=== PATIENT | male | born 1960 | race Caucasian/White ===

== ENCOUNTER 2017-10-14 10:08 | Emergency (ER) | payer BC ==
[~2017-10-14] VITALS: Ht 177.8 cm; Wt 106.8 kg
[2017-10-14 10:49] LABS: BASOPHIL (%) 0.2 % (0-1); EOSINOPHIL (%) 0.3 % (0-5); HEMATOCRIT 37.7 % (38.0-50.0); HEMOGLOBIN 13.3 G/DL (12.5-16.6); IMMATURE GRANULOCYTE (%) 0.3 % (0.0-0.7); LYMPHOCYTE (%) 10.2 % (15-42); LYMPHOCYTE COUNT 1.1 K/uL (1.0-2.8); MCH 31.4 PG (29.0-34.0); MCHC 35.3 G/DL (30.0-36.0); MCV 88.9 FL (86-99); MONOCYTE (%) 11.5 % (3-12); MONOCYTE COUNT 1.3 K/uL (0-0.8); NEUTROPHIL (%) 77.5 % (45-76); NEUTROPHIL COUNT 8.6 K/uL (1.8-6.4); PLATELET COUNT 249 K/uL (156-360); RBC DIS.WIDTH-CV 12.2 % (11.8-14.6); RBC DIS.WIDTH-SD 39.8 % (39-53); RED BLOOD COUNT 4.24 M/uL (4.00-5.50); WHITE BLOOD COUNT 11.1 K/uL (4.1-10.2)
[2017-10-14 10:59] LABS: CHLORIDE 100 mEq/L (99-109); POTASSIUM 3.6 mEq/L (3.7-5.4); SODIUM 136 mEq/L (136-147)
[2017-10-14 11:00] LABS: GLUCOSE 186 mg/dL (70-99)
[2017-10-14 11:04] LABS: CREATININE 1.1 mg/dL (0.6-1.3); GFR ESTIMATE (CALCULATED) > 59 mL/min/ (58.99-99999)
[2017-10-14 11:05] LABS: UREA NITROGEN (BUN) 18 mg/dL (9-23)
[2017-10-14] MEDS ORDERED: DOXYCYCLINE MO100 MG PO (12:00)
[2017-10-14] MEDS ORDERED: NORCO 5/3251 TABLET PO (12:20)
[2017-10-14 12:26] VITALS: BP 118/70
== END 2017-10-14 12:28 | disposition home or self-care (01) ==
LOC: EME 10:08
DX: M70.41 Prepatellar bursitis, right knee (principal); R50.9 Fever, unspecified; E11.9 Type 2 diabetes mellitus without complications
CPT/HCPCS: 71046; 73564; 80048; 81003; 83605; 85025; 99281; 99285

== ENCOUNTER 2017-10-16 10:17 | Inpatient (IN) | payer BC ==
[~2017-10-16] VITALS: Ht 177.8 cm; Wt 108.5 kg
[~2017-10-16 10:17] MED LIST: DOXYCYCLINE MO100 MG PO; NORCO 5/3251 TABLET PO
[2017-10-16 11:01] LABS: HEMATOCRIT 35.3 % (38.0-50.0); HEMOGLOBIN 12.7 G/DL (12.5-16.6); MCH 31.6 PG (29.0-34.0); MCV 87.8 FL (86-99); PLATELET COUNT 273 K/uL (156-360); RED BLOOD COUNT 4.02 M/uL (4.00-5.50); WHITE BLOOD COUNT 11.5 K/uL (4.1-10.2)
[2017-10-16 11:10] LABS: CHLORIDE 98 mEq/L (99-109); POTASSIUM 3.4 mEq/L (3.7-5.4); SODIUM 134 mEq/L (136-147)
[2017-10-16 11:12] LABS: GLUCOSE 168 mg/dL (70-99)
[2017-10-16 11:15] LABS: GFR ESTIMATE (CALCULATED) > 59 mL/min/ (58.99-99999)
[2017-10-16 11:16] LABS: UREA NITROGEN (BUN) 19 mg/dL (9-23)
[2017-10-16] MEDS ORDERED: AMARYL4 MG PO (13:18)
[2017-10-16] MEDS ORDERED: ACTOS30 MG PO (13:18)
[2017-10-16] MEDS ORDERED: GLUCOPHAGE1000 MG PO (13:18)
[2017-10-16] MEDS ORDERED: HYDROCHLOROTHIA25 MG PO (13:18)
[2017-10-16] MEDS ORDERED: DICLOFENAC SODI75 MG PO (13:19)
[2017-10-16] MEDS ORDERED: AVAPRO300 MG PO (13:19)
[2017-10-16] MEDS ORDERED: PAXIL30 MG PO (13:20)
[2017-10-16] MEDS ORDERED: LIPITOR40 MG PO (13:20)
[2017-10-16] MEDS ORDERED: PRAVACHOL40 MG PO (13:21)
[2017-10-16] MEDS ORDERED: PROTONIX40 MG PO (13:22)
[2017-10-16] MEDS ORDERED: MEN'S MULTI-VI1 EACH PO (13:22)
[2017-10-16] MEDS ORDERED: FIBER PO (13:23)
[2017-10-16 15:03] VITALS: BP 112/74
[2017-10-16 19:17] VITALS: BP 121/79
[2017-10-16 23:10] VITALS: BP 134/85
[2017-10-17 05:52] LABS: BASOPHIL (%) 0.2 % (0-1); EOSINOPHIL (%) 1.1 % (0-5); EOSINOPHIL COUNT 0.1 K/uL (0-0.3); HEMATOCRIT 36.2 % (38.0-50.0); HEMOGLOBIN 12.5 G/DL (12.5-16.6); IMMATURE GRANULOCYTE (%) 0.9 % (0.0-0.7); LYMPHOCYTE (%) 12.3 % (15-42); LYMPHOCYTE COUNT 1.3 K/uL (1.0-2.8); MCH 30.6 PG (29.0-34.0); MCHC 34.5 G/DL (30.0-36.0); MCV 88.7 FL (86-99); MONOCYTE (%) 7.3 % (3-12); MONOCYTE COUNT 0.8 K/uL (0-0.8); NEUTROPHIL (%) 78.2 % (45-76); NEUTROPHIL COUNT 8.2 K/uL (1.8-6.4); PLATELET COUNT 309 K/uL (156-360); RBC DIS.WIDTH-SD 39.5 % (39-53); RED BLOOD COUNT 4.08 M/uL (4.00-5.50); WHITE BLOOD COUNT 10.5 K/uL (4.1-10.2)
[2017-10-17 06:15] LABS: CHLORIDE 100 MEQ/L (99-109); CREATININE 0.9 MG/DL (0.6-1.3); GFR ESTIMATE (CALCULATED) > 59 mL/min/ (58.99-99999); GLUCOSE 155 mg/dL (70-99); POTASSIUM 3.7 MEQ/L (3.7-5.4); SODIUM 136 MEQ/L (136-147); UREA NITROGEN (BUN) 21 mg/dL (9-23)
[2017-10-17 07:25] VITALS: BP 130/82
[2017-10-17 10:48] LABS: HEMOGLOBIN A1c (GLYCOHEMOGLOB) 7.4 % (Below 5.7)
[2017-10-17 11:22] VITALS: BP 125/81
[2017-10-17 15:28] VITALS: BP 121/71
[2017-10-18 00:09] VITALS: BP 133/84
[2017-10-18 06:36] LABS: BASOPHIL (%) 0.3 % (0-1); EOSINOPHIL (%) 1.2 % (0-5); EOSINOPHIL COUNT 0.1 K/uL (0-0.3); HEMATOCRIT 36.1 % (38.0-50.0); HEMOGLOBIN 12.3 G/DL (12.5-16.6); IMMATURE GRANULOCYTE (%) 0.7 % (0.0-0.7); LYMPHOCYTE (%) 14.2 % (15-42); LYMPHOCYTE COUNT 1.3 K/uL (1.0-2.8); MCH 30.4 PG (29.0-34.0); MCHC 34.1 G/DL (30.0-36.0); MCV 89.1 FL (86-99); MONOCYTE (%) 7.8 % (3-12); MONOCYTE COUNT 0.7 K/uL (0-0.8); NEUTROPHIL (%) 75.8 % (45-76); PLATELET COUNT 349 K/uL (156-360); RBC DIS.WIDTH-CV 12.1 % (11.8-14.6); RBC DIS.WIDTH-SD 39.5 % (39-53); RED BLOOD COUNT 4.05 M/uL (4.00-5.50); WHITE BLOOD COUNT 9.2 K/uL (4.1-10.2)
[2017-10-18 07:03] LABS: ALBUMIN 3.9 G/DL (3.2-4.8); ALKALINE PHOSPHATASE 80 IU/L (3-129); ALT (GPT) 23 IU/L (3-49); AST (GOT) 20 IU/L (2-34); CHLORIDE 97 MEQ/L (99-109); CREATININE 0.8 MG/DL (0.6-1.3); GFR ESTIMATE (CALCULATED) > 59 mL/min/ (58.99-99999); POTASSIUM 3.9 MEQ/L (3.7-5.4); SODIUM 138 MEQ/L (136-147); TOTAL BILIRUBIN 0.6 MG/DL (0.0-1.0); TOTAL PROTEIN 6.8 G/DL (6.4-8.3); UREA NITROGEN (BUN) 17 mg/dL (9-23)
[2017-10-18 07:04] LABS: GLUCOSE 260 mg/dL (70-99)
[2017-10-18 07:41] VITALS: BP 129/69
[2017-10-18 10:47] VITALS: BP 126/87
[2017-10-18 15:30] VITALS: BP 116/72
[2017-10-18 23:56] VITALS: BP 117/54
[2017-10-19 06:24] LABS: BASOPHIL (%) 0.5 % (0-1); EOSINOPHIL (%) 2.4 % (0-5); EOSINOPHIL COUNT 0.2 K/uL (0-0.3); HEMATOCRIT 32.1 % (38.0-50.0); IMMATURE GRANULOCYTE (%) 1.1 % (0.0-0.7); LYMPHOCYTE (%) 20.7 % (15-42); LYMPHOCYTE COUNT 1.7 K/uL (1.0-2.8); MCH 30.6 PG (29.0-34.0); MCHC 34.3 G/DL (30.0-36.0); MCV 89.4 FL (86-99); MONOCYTE COUNT 0.7 K/uL (0-0.8); NEUTROPHIL (%) 66.3 % (45-76); NEUTROPHIL COUNT 5.5 K/uL (1.8-6.4); PLATELET COUNT 337 K/uL (156-360); RBC DIS.WIDTH-CV 12.3 % (11.8-14.6); RBC DIS.WIDTH-SD 40.6 % (39-53); RED BLOOD COUNT 3.59 M/uL (4.00-5.50); WHITE BLOOD COUNT 8.3 K/uL (4.1-10.2)
[2017-10-19 06:53] LABS: ALBUMIN 3.5 G/DL (3.2-4.8); ALKALINE PHOSPHATASE 74 IU/L (3-129); ALT (GPT) 26 IU/L (3-49); AST (GOT) 24 IU/L (2-34); CHLORIDE 100 MEQ/L (99-109); CREATININE 0.8 MG/DL (0.6-1.3); GFR ESTIMATE (CALCULATED) > 59 mL/min/ (58.99-99999); GLUCOSE 165 mg/dL (70-99); POTASSIUM 3.9 MEQ/L (3.7-5.4); SODIUM 137 MEQ/L (136-147); TOTAL BILIRUBIN 0.4 MG/DL (0.0-1.0); UREA NITROGEN (BUN) 23 mg/dL (9-23)
[2017-10-19 07:38] VITALS: BP 140/79
[2017-10-20 01:22] VITALS: BP 128/70
[2017-10-20] MEDS ORDERED: CEFADROXIL1 GM PO (04:59)
[2017-10-20 06:11] LABS: BASOPHIL (%) 0.4 % (0-1); EOSINOPHIL (%) 2.1 % (0-5); EOSINOPHIL COUNT 0.2 K/uL (0-0.3); HEMATOCRIT 34.7 % (38.0-50.0); HEMOGLOBIN 11.9 G/DL (12.5-16.6); IMMATURE GRANULOCYTE (%) 2.2 % (0.0-0.7); LYMPHOCYTE (%) 21.4 % (15-42); LYMPHOCYTE COUNT 1.7 K/uL (1.0-2.8); MCH 30.4 PG (29.0-34.0); MCHC 34.3 G/DL (30.0-36.0); MCV 88.7 FL (86-99); MONOCYTE (%) 9.7 % (3-12); MONOCYTE COUNT 0.8 K/uL (0-0.8); NEUTROPHIL (%) 64.2 % (45-76); PLATELET COUNT 385 K/uL (156-360); RBC DIS.WIDTH-CV 12.2 % (11.8-14.6); RBC DIS.WIDTH-SD 39.9 % (39-53); RED BLOOD COUNT 3.91 M/uL (4.00-5.50); WHITE BLOOD COUNT 7.8 K/uL (4.1-10.2)
[2017-10-20 06:36] LABS: ALBUMIN 3.5 G/DL (3.2-4.8); ALKALINE PHOSPHATASE 64 IU/L (3-129); CHLORIDE 101 MEQ/L (99-109); CREATININE 0.8 MG/DL (0.6-1.3); GFR ESTIMATE (CALCULATED) > 59 mL/min/ (58.99-99999); GLUCOSE 148 mg/dL (70-99); POTASSIUM 4.3 MEQ/L (3.7-5.4); SODIUM 138 MEQ/L (136-147); TOTAL PROTEIN 6.4 G/DL (6.4-8.3); UREA NITROGEN (BUN) 13 mg/dL (9-23)
[2017-10-20 06:39] LABS: ALT (GPT) 59 IU/L (3-49); AST (GOT) 77 IU/L (2-34); TOTAL BILIRUBIN 0.5 MG/DL (0.0-1.0)
[2017-10-20 07:20] VITALS: BP 133/78
== END 2017-10-20 10:25 | disposition home or self-care (01) | DRG 603 ==
LOC: EME 10:17 → EDOF 12:00 → 2EAST 12:00 → ENRESERV 12:07 → 2EAST 14:24
PROVIDERS: Emergency Medicine; Internal Medicine
DX: L03.115 Cellulitis of right lower limb (principal); J98.11 Atelectasis; A46 Erysipelas; S80.211A Abrasion, right knee, initial encounter; W45.0XXA Nail entering through skin, initial encounter; E78.5 Hyperlipidemia, unspecified; E87.6 Hypokalemia; F41.9 Anxiety disorder, unspecified; I10 Essential (primary) hypertension; J33.8 Other polyp of sinus; K21.9 Gastro-esophageal reflux disease without esophagitis; E11.9 Type 2 diabetes mellitus without complications; Z79.84 Long term (current) use of oral hypoglycemic drugs; Z87.891 Personal history of nicotine dependence; Z82.49 Family history of ischemic heart disease and other diseases of the circulatory system; Z83.3 Family history of diabetes mellitus
CPT/HCPCS: 70450; 70486; 71046; 73564; 80048; 80053; 80202; 81003; 82948; 83036; 83605; 85025; 85027; 87040; 99281; 99285; J0295; J0696; J1650; J1815; J1885; J3370; J7030; J7050